=== PATIENT | female | born 1975 | race Two or more races ===

== ENCOUNTER → 2022-01-09 | Outpatient (CLI) | payer MEDICAID ==
[2022-01-09 13:23] LABS: Basophils # (auto) 0 10 ^3/uL (0-0.2); Basophils % (auto) 0.7 % (0.0-2.0); Eosinophils # (auto) 0.1 10 ^3/uL (0-0.8); Hematocrit 35.8 % (36.0-46.0); Hemoglobin 11.7 g/dL (12.2-16.2); Lymphocytes # (auto) 1.5 10 ^3/uL (0.4-5.4); Lymphocytes % (auto) 33.1 % (10.0-50.0); Mean Corpuscular Hemoglobin 27.7 pg (28.0-32.0); Mean Corpuscular Hgb Conc. 32.7 g/dL (32.0-36.0); Mean Corpuscular Volume 84.6 fL (80.0-100.0); Monocytes # (auto) 0.5 10 ^3/uL (0-1.3); Monocytes % (auto) 10.4 % (0.0-12.0); Neutrophils # (auto) 2.4 10 ^3/uL (1.6-8.6); Neutrophils % (auto) 53.8 % (37.0-80.0); Red Blood Cells 4.24 10^6/uL (4.0-5.20); Red Cell Distribution Width 14.8 % (11.8-14.3); White Blood Cell 4.5 10^3/uL (4.4-10.8)
[2022-01-09 14:00] LABS: Calcium 8.8 mg/dL (8.5-10.1); Potassium 4.3 mmol/L (3.5-5.1)
[2022-01-09 14:06] LABS: Albumin 3.8 g/dL (3.4-5.0); BUN/Creatinine Ratio 17.7; Bilirubin, Total 0.5 mg/dL (0.2-1.0); Total Protein 7.2 g/dL (6.4-8.2)
[2022-01-09 14:13] LABS: Free T4 (Free Thyroxine) 0.81 ng/dL (0.89-1.76)
== END | disposition home or self-care (01) ==
LOC: LAB 12:52
PROVIDERS: ATTEND Nurse Practitioner Family
DX: Z00.00 Encounter for general adult medical examination without abnormal findings (principal); F10.20 Alcohol dependence, uncomplicated; F41.9 Anxiety disorder, unspecified; R59.1 Generalized enlarged lymph nodes; J45.20 Mild intermittent asthma, uncomplicated
CPT/HCPCS: 36415; 80053; 80061; 82150; 82607; 83690; 84439; 84443; 85025